=== PATIENT | female | born 1930 | race Caucasian/White ===

== ENCOUNTER 2018-04-01 10:27 | Emergency (ER) | payer MEDICARE, BC ==
[~2018-04-01] VITALS: Ht 578.2 cm; Wt 63.0 kg
[~2018-04-01 10:27] MED LIST: ANAS1TAB PO; CARV6.253 PO; CRAN500T2 PO; ENOX40DI11 SQ; LEVO50TA67 PO; MONT10TA24 PO; NITR100C PO; OMEP-84 PO; TRAM50TA2 PO; VENL75TA4 PO; ZOC40T PO
[2018-04-01] MEDS ORDERED: ondansetron 4mg rapidly disintigrating tab PO ONE (11:35)
[2018-04-01] MEDS ORDERED: HYDROcodone/acetaminophen 5mg/325mg tablet PO ONE (11:35)
[2018-04-01 12:39] VITALS: BP 158/82
== END 2018-04-01 12:46 | disposition home or self-care (01) ==
LOC: ER 10:28
DX: S00.03XA Contusion of scalp, initial encounter (principal); S00.33XA Contusion of nose, initial encounter; S40.012A Contusion of left shoulder, initial encounter; I11.0 Hypertensive heart disease with heart failure; I50.9 Heart failure, unspecified; K21.9 Gastro-esophageal reflux disease without esophagitis; G89.29 Other chronic pain; M19.90 Unspecified osteoarthritis, unspecified site; Z98.890 Other specified postprocedural states; Z88.1 Allergy status to other antibiotic agents; Z88.8 Allergy status to other drugs, medicaments and biological substances; Z79.899 Other long term (current) drug therapy; Z60.2 Problems related to living alone; W18.39XA Other fall on same level, initial encounter; Y93.89 Activity, other specified; Y92.000 Kitchen of unspecified non-institutional (private) residence as the place of occurrence of the external cause; Y99.8 Other external cause status
CPT/HCPCS: 70450; 72170; 73030; 93005; 99284

== ENCOUNTER 2018-11-06 08:36 | Emergency (ER) | payer MEDICARE, BC ==
[~2018-11-06] VITALS: Ht 167.6 cm; Wt 62.7 kg
[2018-11-06] MEDS ORDERED: ondansetron 4mg rapidly disintigrating tab PO ONE (09:20)
[2018-11-06] MEDS ORDERED: normal saline 1000ML IV soln IVB ONE (09:20)
[2018-11-06] MEDS ORDERED: acetaminophen 325mg tablet PO ONE (09:20)
[2018-11-06 09:39] LABS: BASOPHILS # (AUTO) 0.1 X10'3 (0-0.2); BASOPHILS % (AUTO) 0.9 % (0-1); EOSINOPHILS # (AUTO) 0.1 X10'3 (0-0.9); EOSINOPHILS % (AUTO) 1.3 % (0-6); HEMATOCRIT 29.2 % (35.0-45.0); HEMOGLOBIN 9.6 g/dl (12.0-16.0); LYMPHOCYTES # (AUTO) 0.7 X10'3 (1.1-4.8); MEAN CORPUSCULAR HEMOGLOBIN 26.7 PG (27.0-31.0); MEAN CORPUSCULAR HGB CONC 32.9 g/dL (33.0-36.5); MEAN CORPUSCULAR VOLUME 81.2 FL (78-98); MONOCYTES # (AUTO) 0.5 X10'3 (0-0.9); MONOCYTES % (AUTO) 8.1 % (2-12); NEUTROPHILS # (AUTO) 4.6 X10'3 (1.8-7.7); NEUTROPHILS % (AUTO) 77.7 % (42-75); PLATELET COUNT 241 X10'3 (140-440); RED BLOOD COUNT 3.59 X10'6 (4.20-5.60); RED CELL DISTRIBUTION WIDTH 15.4 % (11.5-14.5)
[2018-11-06 09:53] LABS: ALANINE AMINOTRANSFERASE 15 U/L (12-78); ALBUMIN 3.3 G/DL (3.4-5.0); ALBUMIN/GLOBULIN RATIO 0.9 (1.1-1.5); ALKALINE PHOSPHATASE 116 IU/L (46-116); ANION GAP 9 (8-16); ASPARTATE AMINO TRANSFERASE 16 U/L (10-37); BILIRUBIN,TOTAL 0.3 MG/DL (0.1-1.0); BLOOD UREA NITROGEN 10 MG/DL (7-18); BUN/CREATININE RATIO 14.5 (6.6-38.0); CALCIUM 8.5 MG/DL (8.5-10.1); CHLORIDE 105 MMOL/L (99-107); CREATININE 0.69 MG/DL (0.40-0.90); GLUCOSE 101 MG/DL (70-104); POTASSIUM 3.6 MMOL/L (3.5-5.1); SODIUM 141 MMOL/L (135-145); TOTAL CARBON DIOXIDE 26.7 MMOL/L (24-32); TOTAL PROTEIN 6.9 G/DL (6.4-8.2); eGFR 81 ML/MIN
[2018-11-06 10:23] LABS: CLARITY,URINE CLEAR (Clear); COLOR,URINE YELLOW (Yellow); GLUCOSE, URINE NEGATIVE (Neg); KETONES,URINE 15 mg/dl (Neg); LEUKOCYTE ESTERASE ,URINE TRACE (Neg); NITRITES, URINE NEGATIVE (Neg); OCCULT BLOOD,URINE TRACE-INTACT (Neg); PROTEIN,URINE NEGATIVE (Neg); UROBILINOGEN,URINE 0.2 E.U/dL (0.2-1.0)
[2018-11-06 10:29] LABS: UA COLLECTION TYPE CLN CATCH MIDSTREAM
[2018-11-06 10:30] LABS: BACTERIA,URINE NONE SEEN /HPF (Neg); MUCUS STRANDS NONE SEEN /LPF (Neg); RBC,URINE 0-2 /HPF (0-2); SQUAMOUS EPITHELIAL CELL,UR MODERATE /LPF (FEW)
[2018-11-06 10:31] LABS: RENAL CELLS, URINE FEW /HPF
[2018-11-06] MEDS ORDERED: NITR100C PO (10:56)
[2018-11-06] MEDS ORDERED: ONDA4TAB6 PO (10:59)
[2018-11-06 11:16] VITALS: BP 163/73
== END 2018-11-06 11:50 | disposition home or self-care (01) ==
LOC: ER 08:36
DX: N39.0 Urinary tract infection, site not specified (principal); R19.7 Diarrhea, unspecified; I11.0 Hypertensive heart disease with heart failure; I50.9 Heart failure, unspecified; K21.9 Gastro-esophageal reflux disease without esophagitis; M19.90 Unspecified osteoarthritis, unspecified site; G89.29 Other chronic pain; Z98.890 Other specified postprocedural states; Z88.1 Allergy status to other antibiotic agents; Z88.8 Allergy status to other drugs, medicaments and biological substances; Z79.899 Other long term (current) drug therapy
CPT/HCPCS: 36415; 80053; 81001; 85025; 87088; 99284; J7030; 96360

== ENCOUNTER 2019-10-15 11:29 | Emergency (ER) | payer MEDICARE, BC ==
[~2019-10-15] VITALS: Ht 167.6 cm; Wt 60.0 kg
[~2019-10-15 11:29] MED LIST changes: -MONT10TA24 PO; +MONT10TA26 PO; +ONDA4TAB6 PO
[2019-10-15] MEDS ORDERED: sucralfate 1gm/10ml UD suspension PO STA (12:23)
[2019-10-15] MEDS ORDERED: mag hydrox/Alum hydrox/simeth 30ml oral suspension PO ONE (12:25)
[2019-10-15] MEDS ORDERED: LIDOcaine Viscous 15ml cup MM ONE (12:25)
[2019-10-15] MEDS ORDERED: PANT40SU2 PO (12:29)
--- NOTE | 2019-10-15 13:10 | NUR ---
Pt having difficulty swallowing medications or water. Pt initially swallows but then coughs and all fluids expelled into emesis bag. Dr Gonzalez notified and Pt brought to Main ED from [facility].
[2019-10-15 14:00] VITALS: BP 165/82
[2019-10-15] MEDS ORDERED: LIDOcaine Viscous 15ml cup ONE (14:23)
[2019-10-15] MEDS ORDERED: MIDAZolam 5mg/5ml vial ONE (14:23)
[2019-10-15] MEDS ORDERED: fentaNYL/PF 50MCG/1 ML 2ML syringe ONE ×2 (14:23→14:24)
[2019-10-15 16:10] VITALS: BP 140/80
[2019-10-15 16:20] VITALS: BP 147/65
[2019-10-15 16:30] VITALS: BP 163/68
--- NOTE | 2019-10-15 16:33 | NUR ---
STILL IN GI LAB
[2019-10-15 16:40] VITALS: BP 162/67
[2019-10-15 17:39] VITALS: BP 153/63
== END 2019-10-15 17:55 | disposition home or self-care (01) ==
LOC: ER 11:29
DX: K22.2 Esophageal obstruction (principal); I50.9 Heart failure, unspecified; I11.9 Hypertensive heart disease without heart failure; K21.9 Gastro-esophageal reflux disease without esophagitis; E03.9 Hypothyroidism, unspecified; M19.90 Unspecified osteoarthritis, unspecified site; G89.29 Other chronic pain; Z98.890 Other specified postprocedural states; Z60.2 Problems related to living alone; Z88.1 Allergy status to other antibiotic agents; Z88.8 Allergy status to other drugs, medicaments and biological substances; Z79.899 Other long term (current) drug therapy
CPT/HCPCS: 43247; 43248; 71045; 99152; 99153; 99285; J2250; J3010; J7040; A4620

== ENCOUNTER 2020-03-02 18:50 | Emergency (ER) | payer MEDICARE, BC ==
[~2020-03-02] VITALS: Ht 167.6 cm; Wt 60.6 kg
[~2020-03-02 18:50] MED LIST changes: +PANT40SU2 PO
[2020-03-02 19:05] VITALS: BP 158/58
[2020-03-02 19:34] LABS: CLARITY,URINE CLOUDY (Clear); COLOR,URINE YELLOW (Yellow); GLUCOSE, URINE NEGATIVE (Neg); KETONES,URINE NEGATIVE (Neg); LEUKOCYTE ESTERASE ,URINE MODERATE (Neg); NITRITES, URINE POSITIVE (Neg); OCCULT BLOOD,URINE TRACE-INTACT (Neg); PH,URINE >=9.0 (4.8-8.0); PROTEIN,URINE 100 mg/dl (Neg); UROBILINOGEN,URINE 0.2 E.U/dL (0.2-1.0)
[2020-03-02 19:45] LABS: UA COLLECTION TYPE CLN CATCH MIDSTREAM
[2020-03-02 19:46] LABS: BACTERIA,URINE 3+ /HPF (Neg); RBC,URINE 0-2 /HPF (0-2); SQUAMOUS EPITHELIAL CELL,UR FEW /LPF (FEW); WBC,URINE 0-4 /HPF (0-4)
[2020-03-02] MEDS ORDERED: SULF1TAB49 PO (20:00)
[2020-03-02] MEDS ORDERED: sulfamethoxazole/trimethoprim DS (800/160mg) tablet PO ONE (20:00)
[2020-03-02] MEDS ORDERED: PHEN-716 PO (20:00)
[2020-03-02] MEDS ORDERED: phenazopyridine 100mg tablet PO ONE (20:00)
== END 2020-03-02 20:15 | disposition home or self-care (01) ==
LOC: ER 18:51
DX: N39.0 Urinary tract infection, site not specified (principal); R30.0 Dysuria; R30.9 Painful micturition, unspecified; R10.9 Unspecified abdominal pain; I11.0 Hypertensive heart disease with heart failure; I50.9 Heart failure, unspecified; K21.9 Gastro-esophageal reflux disease without esophagitis; M19.90 Unspecified osteoarthritis, unspecified site; G89.29 Other chronic pain; Z98.890 Other specified postprocedural states; Z60.2 Problems related to living alone; Z88.1 Allergy status to other antibiotic agents; Z88.8 Allergy status to other drugs, medicaments and biological substances; Z79.2 Long term (current) use of antibiotics; Z79.899 Other long term (current) drug therapy
CPT/HCPCS: 81001; 87077; 87088; 87186; 99283

== ENCOUNTER 2020-03-11 12:09 | Emergency (ER) | payer MEDICARE, BC ==
[~2020-03-11] VITALS: Ht 167.6 cm; Wt 59.1 kg
[~2020-03-11 12:09] MED LIST changes: +PHEN-716 PO
[2020-03-11 12:19] VITALS: BP 113/52
--- NOTE | 2020-03-11 14:42 | NUR ---
CALLED INTO ROOM BY PT. PT IS UPSET THAT IT HAS TAKEN SO LONG FOR ANYONE TO SEE HER. DR ALVES NOTIFIED HE STATES HE WILL GO SEE HER. IN ROOM 3894
[2020-03-11] MEDS ORDERED: LIDOcaine 5% patch TP ONE ×2 (14:45→14:50)
[2020-03-11] MEDS ORDERED: acetaminophen w/codeine (30MG) #3 tablet PO ONE (14:45)
[2020-03-11] MEDS ORDERED: LIDOcaine 5% patch TP SCH (14:45)
--- NOTE | 2020-03-11 16:00 | NUR ---
Pt repeatitively requesting to leave the ER. Stating that she has been waiting too long and would like to leave. Pt explained that DANIELD was going to speak with her shortly. Pt then found walking out of dept. When asked if she was trying to leave, pt stated that she had signed paperwork and was ready to leave. Attempted to explain that the paperwork she signed was registration paperwork, she refused to stay and was assisted out of dept to avoid pt falling as she is walker bound.
== END 2020-03-11 16:05 | disposition left against medical advice (07) ==
LOC: ER 12:10
DX: S39.012D Strain of muscle, fascia and tendon of lower back, subsequent encounter (principal); M54.5 Low back pain; I50.9 Heart failure, unspecified; I11.0 Hypertensive heart disease with heart failure; K21.9 Gastro-esophageal reflux disease without esophagitis; E03.9 Hypothyroidism, unspecified; M19.90 Unspecified osteoarthritis, unspecified site; G89.29 Other chronic pain; Z60.2 Problems related to living alone; Z88.8 Allergy status to other drugs, medicaments and biological substances; Z79.899 Other long term (current) drug therapy; X58.XXXD Exposure to other specified factors, subsequent encounter
CPT/HCPCS: 99283

== ENCOUNTER 2020-07-18 09:46 | Emergency (ER) | payer MEDICARE, BC ==
[~2020-07-18] VITALS: Ht 160 cm; Wt 60.0 kg
[2020-07-18 11:02] LABS: BASOPHILS % (AUTO) 0.5 % (0-1); EOSINOPHILS % (AUTO) 0.1 % (0-6); HEMATOCRIT 37.6 % (35.0-45.0); HEMOGLOBIN 12.1 g/dl (12.0-16.0); LYMPHOCYTES # (AUTO) 0.5 X10'3 (1.1-4.8); LYMPHOCYTES % (AUTO) 16.9 % (21-51); MEAN CORPUSCULAR HEMOGLOBIN 28.7 PG (27.0-31.0); MEAN CORPUSCULAR HGB CONC 32.3 g/dL (33.0-36.5); MEAN CORPUSCULAR VOLUME 88.8 FL (78-98); MEAN PLATELET VOLUME 8.4 FL (7.4-10.4); MONOCYTES # (AUTO) 0.4 X10'3 (0-0.9); MONOCYTES % (AUTO) 12.6 % (2-12); NEUTROPHILS # (AUTO) 2.3 X10'3 (1.8-7.7); NEUTROPHILS % (AUTO) 69.9 % (42-75); PLATELET COUNT 90 X10'3 (140-440); RED BLOOD COUNT 4.23 X10'6 (4.20-5.60); RED CELL DISTRIBUTION WIDTH 13.8 % (11.5-14.5); WHITE BLOOD COUNT 3.3 X10'3 (4.5-11.0)
[2020-07-18 11:18] LABS: ALANINE AMINOTRANSFERASE 50 U/L (12-78); ALBUMIN 3.1 G/DL (3.4-5.0); ALBUMIN/GLOBULIN RATIO 0.8 (1.1-1.5); ALKALINE PHOSPHATASE 91 IU/L (46-116); ANION GAP 10 (8-16); ASPARTATE AMINO TRANSFERASE 55 U/L (10-37); BILIRUBIN,TOTAL 0.2 MG/DL (0.1-1.0); BLOOD UREA NITROGEN 15 MG/DL (7-18); CALCIUM 8.1 MG/DL (8.5-10.1); CHLORIDE 102 MMOL/L (99-107); CREATININE 0.75 MG/DL (0.40-0.90); GLUCOSE 91 MG/DL (70-104); POTASSIUM 3.1 MMOL/L (3.5-5.1); SODIUM 137 MMOL/L (135-145); TOTAL CARBON DIOXIDE 24.8 MMOL/L (24-32); TOTAL PROTEIN 6.9 G/DL (6.4-8.2); eGFR 73 ML/MIN
[2020-07-18] MEDS ORDERED: HYDROcodone/acetaminophen 10/325mg tab PO ONE ×2 (12:00→18:25)
[2020-07-18 12:54] LABS: CLARITY,URINE CLOUDY (Clear); COLOR,URINE YELLOW (Yellow); GLUCOSE, URINE NEGATIVE (Neg); KETONES,URINE 15 mg/dl (Neg); LEUKOCYTE ESTERASE ,URINE NEGATIVE (Neg); NITRITES, URINE NEGATIVE (Neg); OCCULT BLOOD,URINE NEGATIVE (Neg); PH,URINE 6.5 (4.8-8.0); PROTEIN,URINE 30 mg/dl (Neg); UROBILINOGEN,URINE 0.2 E.U/dL (0.2-1.0)
[2020-07-18 12:57] LABS: UA COLLECTION TYPE OTHER
[2020-07-18 13:01] LABS: BACTERIA,URINE 1+ /HPF (Neg); MUCUS STRANDS FEW /LPF (Neg); RBC,URINE 0-2 /HPF (0-2); SQUAMOUS EPITHELIAL CELL,UR MODERATE /LPF (FEW); WBC,URINE 0-4 /HPF (0-4)
--- NOTE | 2020-07-18 14:42 | NUR ---
Pt up to bedside comode with minimal assistance.
[2020-07-18] MEDS ORDERED: HYDR-3965 PO (15:49)
[2020-07-18 18:43] VITALS: BP 146/113
== END 2020-07-18 18:45 | disposition home or self-care (01) ==
LOC: ER 09:47
DX: U07.1 COVID-19 (principal); R06.02 Shortness of breath; R51.9 Headache, unspecified; R05 Cough; R11.0 Nausea; I11.0 Hypertensive heart disease with heart failure; I50.9 Heart failure, unspecified; K21.9 Gastro-esophageal reflux disease without esophagitis; E03.9 Hypothyroidism, unspecified; M19.90 Unspecified osteoarthritis, unspecified site; G89.29 Other chronic pain; Z87.440 Personal history of urinary (tract) infections; Z98.890 Other specified postprocedural states; Z60.2 Problems related to living alone; Z88.1 Allergy status to other antibiotic agents; Z88.8 Allergy status to other drugs, medicaments and biological substances; Z91.013 Allergy to seafood; Z79.899 Other long term (current) drug therapy
CPT/HCPCS: 36415; 71045; 80053; 81001; 84484; 85025; 87635; 93005; 99285; C9803

== ENCOUNTER 2020-07-24 18:42 | Inpatient (IN) | payer MEDICARE, BC ==
[~2020-07-24] VITALS: Ht 167.6 cm; Wt 59.4 kg
[~2020-07-24 18:42] MED LIST changes: +HYDR-3965 PO
[2020-07-24 19:34] LABS: BASOPHILS % (AUTO) 0.2 % (0-1); EOSINOPHILS % (AUTO) 0.5 % (0-6); HEMATOCRIT 35.2 % (35.0-45.0); HEMOGLOBIN 11.8 g/dl (12.0-16.0); LYMPHOCYTES # (AUTO) 0.4 X10'3 (1.1-4.8); LYMPHOCYTES % (AUTO) 7.4 % (21-51); MEAN CORPUSCULAR HEMOGLOBIN 29.2 PG (27.0-31.0); MEAN CORPUSCULAR HGB CONC 33.5 g/dL (33.0-36.5); MEAN CORPUSCULAR VOLUME 86.9 FL (78-98); MEAN PLATELET VOLUME 7.9 FL (7.4-10.4); MONOCYTES # (AUTO) 0.6 X10'3 (0-0.9); MONOCYTES % (AUTO) 11.1 % (2-12); NEUTROPHILS # (AUTO) 4.7 X10'3 (1.8-7.7); NEUTROPHILS % (AUTO) 80.8 % (42-75); PLATELET COUNT 189 X10'3 (140-440); RED BLOOD COUNT 4.04 X10'6 (4.20-5.60); RED CELL DISTRIBUTION WIDTH 13.9 % (11.5-14.5); WHITE BLOOD COUNT 5.8 X10'3 (4.5-11.0)
[2020-07-24 20:16] LABS: D-DIMER 1.07 MG/L FEU (0-0.50)
[2020-07-24 20:26] LABS: ALANINE AMINOTRANSFERASE 66 U/L (12-78); ALBUMIN 2.8 G/DL (3.4-5.0); ALBUMIN/GLOBULIN RATIO 0.7 (1.1-1.5); ALKALINE PHOSPHATASE 140 IU/L (46-116); ANION GAP 9 (8-16); ASPARTATE AMINO TRANSFERASE 50 U/L (10-37); BILIRUBIN,TOTAL 0.3 MG/DL (0.1-1.0); BLOOD UREA NITROGEN 18 MG/DL (7-18); BUN/CREATININE RATIO 20.5 (6.6-38.0); CALCIUM 7.9 MG/DL (8.5-10.1); CHLORIDE 100 MMOL/L (99-107); CREATININE 0.88 MG/DL (0.40-0.90); GLUCOSE 117 MG/DL (70-104); POTASSIUM 3.4 MMOL/L (3.5-5.1); SODIUM 134 MMOL/L (135-145); TOTAL CARBON DIOXIDE 25.4 MMOL/L (24-32); TOTAL PROTEIN 6.7 G/DL (6.4-8.2); eGFR 61 ML/MIN
[2020-07-24 20:30] LABS: C-REACTIVE PROTEIN 9.34 MG/DL (0.0-0.5); FERRITIN 214 NG/ML (8-252); LACTATE DEHYDROGENASE 225 U/L (81-234)
[2020-07-24] MEDS ORDERED: iohexol 350MG/ML 100ml bottle IV ONE (20:56)
--- NOTE | 2020-07-24 21:14 | NUR ---
Pt in CT
[2020-07-24] MEDS ORDERED: acetaminophen 325mg tablet PO ONE (21:30)
[2020-07-24] MEDS ORDERED: OXYM30SP26 BOTHNARES (22:05)
[2020-07-24] MEDS ORDERED: oxymetazoline 15 ML nasal spray NS ONE (22:05)
[2020-07-24] MEDS ORDERED: ondansetron 4mg rapidly disintigrating tab PO ONE (22:05)
[2020-07-24] MEDS: HYDROcodone/acetaminophen 5mg/325mg tablet PO ONE ×2 (22:05→22:38)
--- NOTE | 2020-07-24 22:55 | NUR ---
PT SHORT OF BREATH RECHECKED O2 SATS AT 87-88 % RA PLACED 1.5 L O2 PER NC O2 SATS INCREASE TO 91 % NOTIFIED PRIMARY RN . ABOUT DESATURATION AND PT INCREASED WORK OF BREATHING WITH ACTIVITY .
[2020-07-24] MEDS ORDERED: dexamethasone 4mg tablet PO ONE (23:10)
--- NOTE | 2020-07-24 23:10 | NUR ---
Dr. Bolanos advised of Pt desaturating when oxygen removed. Dr. Bolanos advised pt will be admitted.
[2020-07-24] MEDS ORDERED: HYDROcodone/acetaminophen 5mg/325mg tablet PO ONE (23:15)
[2020-07-24] MEDS ORDERED: potassium Cl 20 mEq SR tablet PO PRN (23:50)
[2020-07-24] MEDS ORDERED: mag hydrox/Alum hydrox/simeth 30ml oral suspension PO PRN (23:50)
[2020-07-24] MEDS ORDERED: acetaminophen 325mg tablet PO PRN (23:50)
[2020-07-24] MEDS ORDERED: magnesium hydroxide 30ml (MOM) UD suspension PO PRN (23:50)
[2020-07-24] MEDS ORDERED: potassium CL 10mEq/100ml bag 100 ML IV PRN ×2 (23:50)
[2020-07-24] MEDS: normal saline 1000ml 1,000 ML IV SCH (23:50)
[2020-07-24] MEDS ORDERED: ondansetron/PF 4mg/2ml inj IV PRN (23:50)
--- NOTE | 2020-07-25 00:05 | NUR ---
Pt on 2 L NC maintaining SPO2 of 95%
[2020-07-25] MEDS ORDERED: LEVO50TA8 PO (00:49)
[2020-07-25] MEDS ORDERED: OXYB-58 PO (00:53)
[2020-07-25] MEDS ORDERED: CETI10TA14 PO (00:53)
[2020-07-25] MEDS ORDERED: LOSA25TA41 PO (00:54)
[2020-07-25] MEDS ORDERED: OMEP40CA13 PO (00:55)
[2020-07-25] MEDS ORDERED: VENL50TA4 PO (00:57)
[2020-07-25] MEDS ORDERED: EXEM25TA5 PO (01:43)
[2020-07-25] MEDS ORDERED: METH500T6 PO (01:43)
--- NOTE | 2020-07-25 01:45 | NUR ---
Pt bed linens changed and pt put in gown with clean warm blanket.
--- NOTE | 2020-07-25 03:47 | NUR ---
Pt assisted to bedside comode. NS at 20ml/hr running
--- NOTE | 2020-07-25 06:09 | NUR ---
Pt states she has been taking antibiotics for a UTI that she was diagnosed with 1 week ago. Pt has Cipro 500mg tablets in purse with 8 left. Paged Hospitalist to confirm pt can continue taking medication.
--- NOTE | 2020-07-25 06:11 | NUR ---
Dr. Banegas states he approves an order for Cipro 500mg BID for pt
[2020-07-25] MEDS ORDERED: CIPR500T5 PO (06:28)
[2020-07-25 07:33] VITALS: BP 130/73
[2020-07-25] MEDS: cyclobenzaprine 10mg tablet PO SCH ×3 (07:46→19:45)
[2020-07-25] MEDS: normal saline 1000ml 1,000 ML IV SCH (07:46)
[2020-07-25] MEDS: pantoprazole 40mg Tablet.DR PO SCH (07:47)
[2020-07-25] MEDS: carvedilol 6.25mg tablet PO SCH ×2 (07:47→19:44)
[2020-07-25] MEDS: levoTHYROXINE 25mcg tablet PO SCH (07:47)
[2020-07-25] MEDS: venlafaxine 25mg tablet PO SCH (07:47)
[2020-07-25] MEDS: losartan 25mg tablet PO SCH (07:48)
[2020-07-25] MEDS: enoxaparin 40mg/0.4ml syringe SUBCUT SCH (07:48)
[2020-07-25] MEDS: K and/or MAG REPLACEMENT MC SCH ×3 (08:00→19:38)
[2020-07-25] MEDS ORDERED: CRANBERRY EXTRACT 500 MG PO SCH (08:00)
[2020-07-25] MEDS: dexamethasone inj 6 MG in normal saline 100ml IV soln 100 ML IV SCH (08:59)
[2020-07-25 09:36] LABS: BASOPHILS % (AUTO) 0.1 % (0-1); EOSINOPHILS % (AUTO) 0 % (0-6); HEMATOCRIT 34.2 % (35.0-45.0); HEMOGLOBIN 11.2 g/dl (12.0-16.0); LYMPHOCYTES # (AUTO) 0.3 X10'3 (1.1-4.8); MEAN CORPUSCULAR HEMOGLOBIN 28.3 PG (27.0-31.0); MEAN CORPUSCULAR HGB CONC 32.6 g/dL (33.0-36.5); MEAN CORPUSCULAR VOLUME 86.8 FL (78-98); MEAN PLATELET VOLUME 8.1 FL (7.4-10.4); MONOCYTES # (AUTO) 0.3 X10'3 (0-0.9); MONOCYTES % (AUTO) 5.6 % (2-12); NEUTROPHILS # (AUTO) 4.3 X10'3 (1.8-7.7); NEUTROPHILS % (AUTO) 88.3 % (42-75); PLATELET COUNT 187 X10'3 (140-440); RED BLOOD COUNT 3.94 X10'6 (4.20-5.60); RED CELL DISTRIBUTION WIDTH 13.8 % (11.5-14.5); WHITE BLOOD COUNT 4.8 X10'3 (4.5-11.0)
[2020-07-25 09:50] LABS: ALANINE AMINOTRANSFERASE 52 U/L (12-78); ALBUMIN 2.6 G/DL (3.4-5.0); ALBUMIN/GLOBULIN RATIO 0.7 (1.1-1.5); ALKALINE PHOSPHATASE 129 IU/L (46-116); ANION GAP 10 (8-16); ASPARTATE AMINO TRANSFERASE 39 U/L (10-37); BILIRUBIN,TOTAL 0.3 MG/DL (0.1-1.0); BLOOD UREA NITROGEN 15 MG/DL (7-18); BUN/CREATININE RATIO 18.3 (6.6-38.0); CALCIUM 7.8 MG/DL (8.5-10.1); CHLORIDE 100 MMOL/L (99-107); CREATININE 0.82 MG/DL (0.40-0.90); GLUCOSE 154 MG/DL (70-104); POTASSIUM 3.4 MMOL/L (3.5-5.1); SODIUM 135 MMOL/L (135-145); TOTAL CARBON DIOXIDE 25.3 MMOL/L (24-32); TOTAL PROTEIN 6.5 G/DL (6.4-8.2); eGFR 66 ML/MIN
--- NOTE | 2020-07-25 10:31 | NUR ---
I spoke to pharmacist Mariel about patient's daughter was concern about sending the granddaughter to [facility] to picker box operator home meds (i.e., Cranberry pill and Exemestane) as per request. Patient lives at [facility], patient and the daughter both told me that there is outbreak of Covid19 at the facility. Beam Machine Operator Deepa notified about this as patient may be difficult to get back to the facility.
--- NOTE | 2020-07-25 10:40 | NUR ---
Paged Dr. Estrada PAGER ID: [phone] MESSAGE: Surgical Flex RN ext [phone]. RE: Nina Rascon. K today is 3.4, can we get replacement protocol order? Also want to follow up patient request for pain medicine.
[2020-07-25] MEDS ORDERED: potassium Cl 20 mEq SR tablet PO PRN ×2 (10:55)
[2020-07-25] MEDS ORDERED: potassium CL 10mEq/100ml bag 100 ML IV PRN (10:55)
[2020-07-25] MEDS ORDERED: traMADol 50MG tablet PO PRN (10:55)
[2020-07-25] MEDS: potassium Cl 20 mEq SR tablet PO PRN ×2 (11:13→19:45)
--- NOTE | 2020-07-25 11:26 | NUR ---
Patient was offered Tramadol for pain, patient refused. She said Tramadol don't worked for her. She said Marion worked for her. Will let the doctor know
--- NOTE | 2020-07-25 11:33 | NUR ---
Paged Dr. Estrada PAGER ID: [phone] MESSAGE: Darrin Mccord RN ext [phone]. RE: Nina Rascon. Patient refused Tramadol, she said don't work for her. She's requesting [place].
--- NOTE | 2020-07-25 12:05 | NUR ---
Age screen: Pt admit COVID positive about a week ago and has lost appetite and sense of smell per H&P. Patient's diet has been adjusted to mechanical soft d/t no teeth or dentures per diet order. Pending documentation of PO intake at this time. D/w dietary to send chop all food. Will continue to follow closely and monitor need for nutrition intervention pending trends in PO intake. Addendum: 07/25/20 at [address] Amended: Links added.
--- NOTE | 2020-07-25 12:15 | NUR ---
Late entry When I spoke to Dr. Estrada regarding this patient about an hour ago, I mentioned to her that ER nurses note stated that Dr. Banegas approved Cipro PO BID that patient was taking for UTI prior to this admission. I asked her if she is okay resuming it because the order was not put in the computer as an order. Dr. Estrada said that she would have to review the chart to decide.
[2020-07-25] MEDS: HYDROcodone/acetaminophen 5mg/325mg tablet PO PRN ×2 (12:21→20:16)
[2020-07-25 12:25] VITALS: BP 124/53
--- NOTE | 2020-07-25 16:00 | NUR ---
made several call attempts by phone to patient. each time the line was busy. not able to update pt medical records with admissions questions, notified primary RN Yina who will follow up with patient.
--- NOTE | 2020-07-25 16:02 | NUR ---
O2 Sat at rest on room air:_94__% If below 89%: Recovery O2 Sat at rest on __2_LPM:___%:_95__% via_nasal cannula__(mask/nasal cannula, etc..) No further documentation is necessary. If O2 Sat did not drop below 89% on room air,ambulate patient on room air. O2 Sat while ambulating on room air:_88__% Recovery O2 Sat while ambulating on __2_LPM:_94__% No further documentation is necessary. If patient does not drop below 89% while ambulating, he/she does not qualify for home O2.
--- NOTE | 2020-07-25 16:06 | NUR ---
I spoke to Alysia, Welding Specialist about patient met the criteria for home oxygen. I also let her know that patient is anxious about going back to [facility] as she feels like the staff wont be able to care for her and that she is not independent yet with ADL as she was prior to getting sick. I asked Deepa if she can tell Dr. Estrada about this, she said she will
--- NOTE | 2020-07-25 18:42 | NUR ---
Problems reprioritized. Patient report given, questions answered & plan of care reviewed with Audrey RIDLEY.
--- NOTE | 2020-07-25 19:00 | NUR ---
Patient in room [facility]. I have received report from Nancy RIDLEY and had the opportunity to ask questions and assume patient care.
[2020-07-25 20:00] VITALS: BP 126/77
[2020-07-26] VITALS: BP_SYST 120; BP_SYST 134; BP_DIAS 45; BP_DIAS 64
[2020-07-26] MEDS: potassium Cl 20 mEq SR tablet PO PRN (02:38)
[2020-07-26 06:06] LABS: BASOPHILS % (AUTO) 0.2 % (0-1); EOSINOPHILS % (AUTO) 0 % (0-6); HEMATOCRIT 32.7 % (35.0-45.0); LYMPHOCYTES # (AUTO) 0.5 X10'3 (1.1-4.8); LYMPHOCYTES % (AUTO) 4.8 % (21-51); MEAN CORPUSCULAR HEMOGLOBIN 29.3 PG (27.0-31.0); MEAN CORPUSCULAR HGB CONC 33.7 g/dL (33.0-36.5); MEAN CORPUSCULAR VOLUME 86.9 FL (78-98); MEAN PLATELET VOLUME 8.1 FL (7.4-10.4); MONOCYTES # (AUTO) 0.9 X10'3 (0-0.9); MONOCYTES % (AUTO) 9.6 % (2-12); NEUTROPHILS # (AUTO) 8.3 X10'3 (1.8-7.7); NEUTROPHILS % (AUTO) 85.4 % (42-75); PLATELET COUNT 225 X10'3 (140-440); RED BLOOD COUNT 3.76 X10'6 (4.20-5.60); RED CELL DISTRIBUTION WIDTH 13.5 % (11.5-14.5); WHITE BLOOD COUNT 9.7 X10'3 (4.5-11.0)
[2020-07-26 06:25] LABS: ALANINE AMINOTRANSFERASE 44 U/L (12-78); ALBUMIN 2.4 G/DL (3.4-5.0); ALBUMIN/GLOBULIN RATIO 0.6 (1.1-1.5); ALKALINE PHOSPHATASE 115 IU/L (46-116); ANION GAP 11 (8-16); ASPARTATE AMINO TRANSFERASE 26 U/L (10-37); BILIRUBIN,TOTAL 0.2 MG/DL (0.1-1.0); BLOOD UREA NITROGEN 19 MG/DL (7-18); BUN/CREATININE RATIO 26.8 (6.6-38.0); CALCIUM 8.3 MG/DL (8.5-10.1); CHLORIDE 107 MMOL/L (99-107); CREATININE 0.71 MG/DL (0.40-0.90); GLUCOSE 160 MG/DL (70-104); POTASSIUM 3.8 MMOL/L (3.5-5.1); SODIUM 142 MMOL/L (135-145); TOTAL CARBON DIOXIDE 24.1 MMOL/L (24-32); TOTAL PROTEIN 6.3 G/DL (6.4-8.2); eGFR 78 ML/MIN
--- NOTE | 2020-07-26 06:27 | NUR ---
Problems reprioritized. Patient report given, questions answered & plan of care reviewed with Nancy RIDLEY.
--- NOTE | 2020-07-26 06:31 | NUR ---
Patient in room [facility]. I have received report from Audrey RIDLEY and had the opportunity to ask questions and assume patient care.
[2020-07-26] MEDS: dexamethasone inj 6 MG in normal saline 100ml IV soln 100 ML IV SCH (07:18)
[2020-07-26] MEDS: venlafaxine 25mg tablet PO SCH (07:19)
[2020-07-26] MEDS: pantoprazole 40mg Tablet.DR PO SCH (07:19)
[2020-07-26] MEDS: HYDROcodone/acetaminophen 5mg/325mg tablet PO PRN ×2 (07:19→19:32)
[2020-07-26] MEDS: cyclobenzaprine 10mg tablet PO SCH ×3 (07:19→19:25)
[2020-07-26] MEDS: losartan 25mg tablet PO SCH (07:20)
[2020-07-26] MEDS: carvedilol 6.25mg tablet PO SCH ×2 (07:20→19:25)
[2020-07-26] MEDS: levoTHYROXINE 25mcg tablet PO SCH (07:20)
[2020-07-26] MEDS: enoxaparin 40mg/0.4ml syringe SUBCUT SCH (07:21)
[2020-07-26 07:34] VITALS: BP 142/79
[2020-07-26] MEDS: K and/or MAG REPLACEMENT MC SCH ×2 (08:00→19:56)
--- NOTE | 2020-07-26 08:30 | NUR ---
I called pharmacy to request the chemo drug Aromasin tablet due at 08:00am, pharmacy retail support specialist that I spoke on the phone said that it is currently not available as it has to be ordered from [facility].
--- NOTE | 2020-07-26 09:36 | NUR ---
Friend of pt, Neida, phoned stating before admission the pt was "ok'd" by the Health Dept to be removed from isolation on Saturday 07/28 and if pt needs SNF placement pt has been to [facility] in the past and liked it there. Neida was concerned pt will be too weak to go to her home immediately after d/c'g. Shira CARBONE, was notified.
[2020-07-26 10:33] VITALS: BP 102/59
[2020-07-26] MEDS ORDERED: DEC4T PO (12:44)
[2020-07-26 14:28] LABS: D-DIMER 0.89 MG/L FEU (0-0.50)
[2020-07-26 18:00] VITALS: BP 125/57
--- NOTE | 2020-07-26 18:31 | NUR ---
Problems reprioritized. Patient report given, questions answered & plan of care reviewed with Audrey RIDLEY.
--- NOTE | 2020-07-26 18:59 | NUR ---
I have received report from Nancy RIDLEY and had the opportunity to ask questions and assume patient care.
[2020-07-26] MEDS: normal saline 1000ml 1,000 ML IV SCH (19:26)
[2020-07-27] VITALS: BP 120/54
[2020-07-27] MEDS: HYDROcodone/acetaminophen 5mg/325mg tablet PO PRN ×3 (04:17→22:24)
--- NOTE | 2020-07-27 06:27 | NUR ---
Problems reprioritized. Patient report given, questions answered & plan of care reviewed with Belkis RIDLEY.
[2020-07-27 06:52] LABS: BASOPHILS % (AUTO) 0.1 % (0-1); EOSINOPHILS % (AUTO) 0 % (0-6); HEMATOCRIT 32.4 % (35.0-45.0); HEMOGLOBIN 10.7 g/dl (12.0-16.0); LYMPHOCYTES # (AUTO) 0.4 X10'3 (1.1-4.8); LYMPHOCYTES % (AUTO) 3.7 % (21-51); MEAN CORPUSCULAR HEMOGLOBIN 28.4 PG (27.0-31.0); MEAN CORPUSCULAR HGB CONC 33.1 g/dL (33.0-36.5); MEAN CORPUSCULAR VOLUME 85.8 FL (78-98); MEAN PLATELET VOLUME 7.9 FL (7.4-10.4); MONOCYTES # (AUTO) 1.1 X10'3 (0-0.9); MONOCYTES % (AUTO) 9.3 % (2-12); NEUTROPHILS # (AUTO) 10.3 X10'3 (1.8-7.7); NEUTROPHILS % (AUTO) 86.9 % (42-75); PLATELET COUNT 254 X10'3 (140-440); RED BLOOD COUNT 3.78 X10'6 (4.20-5.60); WHITE BLOOD COUNT 11.9 X10'3 (4.5-11.0)
[2020-07-27 07:23] LABS: ALANINE AMINOTRANSFERASE 37 U/L (12-78); ALBUMIN 2.4 G/DL (3.4-5.0); ALBUMIN/GLOBULIN RATIO 0.6 (1.1-1.5); ALKALINE PHOSPHATASE 108 IU/L (46-116); ANION GAP 10 (8-16); ASPARTATE AMINO TRANSFERASE 24 U/L (10-37); BILIRUBIN,TOTAL 0.3 MG/DL (0.1-1.0); BLOOD UREA NITROGEN 22 MG/DL (7-18); BUN/CREATININE RATIO 28.9 (6.6-38.0); CALCIUM 8.4 MG/DL (8.5-10.1); CHLORIDE 108 MMOL/L (99-107); CREATININE 0.76 MG/DL (0.40-0.90); GLUCOSE 119 MG/DL (70-104); POTASSIUM 3.9 MMOL/L (3.5-5.1); SODIUM 141 MMOL/L (135-145); TOTAL PROTEIN 6.1 G/DL (6.4-8.2); eGFR 72 ML/MIN
[2020-07-27 07:40] VITALS: BP 143/72
[2020-07-27] MEDS: K and/or MAG REPLACEMENT MC SCH ×2 (08:00→19:33)
[2020-07-27] MEDS: cyclobenzaprine 10mg tablet PO SCH ×3 (08:03→22:23)
[2020-07-27] MEDS: enoxaparin 40mg/0.4ml syringe SUBCUT SCH (08:03)
[2020-07-27] MEDS: pantoprazole 40mg Tablet.DR PO SCH (08:03)
[2020-07-27] MEDS: venlafaxine 25mg tablet PO SCH (08:04)
[2020-07-27] MEDS: dexamethasone inj 6 MG in normal saline 100ml IV soln 100 ML IV SCH (08:04)
[2020-07-27] MEDS: levoTHYROXINE 25mcg tablet PO SCH (08:04)
[2020-07-27] MEDS: carvedilol 6.25mg tablet PO SCH ×2 (08:04→22:22)
[2020-07-27] MEDS: losartan 25mg tablet PO SCH (08:40)
[2020-07-27] MEDS ORDERED: pneumococcal 23-VAL P-sac vacc 25 mcg/0.5ml vial IMVAC ONE (10:00)
[2020-07-27 12:00] VITALS: BP 138/64
--- NOTE | 2020-07-27 14:33 | NUR ---
Malnutrition consult: Pt reports wt loss with decreased appetite per malnutrition risk screen with RN. Pt with wt hx ranging 59-62 kg since 2017, current documented wt is 59.41 kg which is stable with wt hx. Pt previously on a mechanical soft diet receiving chopped food documented with average 25-50% PO intake. Diet has been changed to mechanical soft grind all. PO intake up to 25% PO intake of protein and 100% PO intake of milk and starch at breakfast this morning. Patient's decreased appetite likely r/t admitting dx of NELIA, which has also resulted in losing sense of smell per MD notes. Pt with no documented significant decrease in muscle strength or edema. Pt appears well developed, well nourished per ED report. Pt currently lacks a minimum of two criteria for malnutrition. Recommend trialing shakes and smoothies with meals to optimize PO intake, d/w dietary. If PO intake does not continue to improve pt may benefit from appetite stimulant with MD approval. Noted that pt currently receiving Effexor which may improve appetite as well. LBM 07/24. Pt received first dose of PRN MoM today. Will continue to follow closely and monitor need for further nutrition intervention. Recommendations: 1) Continue mechanical soft grind all food with thin liquids 2) Trial yogurt q breakfast, smoothie q lunch, and shake q dinner 3) Monitor need for ONS 4) Consider appetite stimulant with MD approval if PO intake does not continue to improve 5) Routine bowel care 6) Scaled weights per rx Addendum: 07/27/20 at [address] Amended: Links added.
--- NOTE | 2020-07-27 18:21 | NUR ---
Problems reprioritized. Patient report given, questions answered & plan of care reviewed with KHAI Baker.
--- NOTE | 2020-07-27 18:41 | NUR ---
Patient in room [facility]. I have received report from KHAI Tamayo and had the opportunity to ask questions and assume patient care.
[2020-07-27 20:00] VITALS: BP 152/79
[2020-07-28 00:17] VITALS: BP 125/63
[2020-07-28] MEDS: guaiFENesin ER 600mg tablet PO SCH ×2 (04:26→14:34)
[2020-07-28 05:53] LABS: BASOPHILS % (AUTO) 0.1 % (0-1); EOSINOPHILS % (AUTO) 0 % (0-6); HEMATOCRIT 33.2 % (35.0-45.0); HEMOGLOBIN 11.1 g/dl (12.0-16.0); LYMPHOCYTES # (AUTO) 0.6 X10'3 (1.1-4.8); LYMPHOCYTES % (AUTO) 5.1 % (21-51); MEAN CORPUSCULAR HEMOGLOBIN 28.9 PG (27.0-31.0); MEAN CORPUSCULAR HGB CONC 33.5 g/dL (33.0-36.5); MEAN CORPUSCULAR VOLUME 86.4 FL (78-98); MONOCYTES # (AUTO) 1.3 X10'3 (0-0.9); MONOCYTES % (AUTO) 11.3 % (2-12); NEUTROPHILS # (AUTO) 9.4 X10'3 (1.8-7.7); NEUTROPHILS % (AUTO) 83.5 % (42-75); PLATELET COUNT 246 X10'3 (140-440); RED BLOOD COUNT 3.84 X10'6 (4.20-5.60); RED CELL DISTRIBUTION WIDTH 14.2 % (11.5-14.5); WHITE BLOOD COUNT 11.3 X10'3 (4.5-11.0)
[2020-07-28 06:17] LABS: ALANINE AMINOTRANSFERASE 33 U/L (12-78); ALBUMIN 2.4 G/DL (3.4-5.0); ALBUMIN/GLOBULIN RATIO 0.6 (1.1-1.5); ALKALINE PHOSPHATASE 106 IU/L (46-116); ANION GAP 9 (8-16); ASPARTATE AMINO TRANSFERASE 16 U/L (10-37); BILIRUBIN,TOTAL 0.2 MG/DL (0.1-1.0); BLOOD UREA NITROGEN 23 MG/DL (7-18); BUN/CREATININE RATIO 27.7 (6.6-38.0); CALCIUM 8.7 MG/DL (8.5-10.1); CHLORIDE 107 MMOL/L (99-107); CREATININE 0.83 MG/DL (0.40-0.90); GLUCOSE 102 MG/DL (70-104); SODIUM 140 MMOL/L (135-145); TOTAL CARBON DIOXIDE 24.1 MMOL/L (24-32); TOTAL PROTEIN 6.2 G/DL (6.4-8.2); eGFR 65 ML/MIN
[2020-07-28 06:46] VITALS: BP 115/85
--- NOTE | 2020-07-28 06:50 | NUR ---
Problems reprioritized. Patient report given, questions answered & plan of care reviewed with KHAI Tamayo.
[2020-07-28] MEDS: K and/or MAG REPLACEMENT MC SCH ×2 (08:00→20:00)
[2020-07-28] MEDS: venlafaxine 25mg tablet PO SCH (08:07)
[2020-07-28] MEDS: levoTHYROXINE 25mcg tablet PO SCH (08:07)
[2020-07-28] MEDS: dexamethasone inj 6 MG in normal saline 100ml IV soln 100 ML IV SCH (08:07)
[2020-07-28] MEDS: carvedilol 6.25mg tablet PO SCH ×2 (08:08→19:49)
[2020-07-28] MEDS: losartan 25mg tablet PO SCH (08:08)
[2020-07-28] MEDS: pantoprazole 40mg Tablet.DR PO SCH (08:08)
[2020-07-28] MEDS: cyclobenzaprine 10mg tablet PO SCH ×3 (08:08→20:16)
[2020-07-28] MEDS: HYDROcodone/acetaminophen 5mg/325mg tablet PO PRN ×3 (08:09→20:34)
[2020-07-28] MEDS: enoxaparin 40mg/0.4ml syringe SUBCUT SCH (08:09)
[2020-07-28 12:00] VITALS: BP 138/72
[2020-07-28 17:50] VITALS: BP 146/69
--- NOTE | 2020-07-28 18:21 | NUR ---
Problems reprioritized. Patient report given, questions answered & plan of care reviewed with KHAI MARIE.
--- NOTE | 2020-07-28 18:21 | NUR ---
Patient in room [facility]. I have received report from KHAI Tamayo and had the opportunity to ask questions and assume patient care.
[2020-07-28 19:50] VITALS: BP 146/69
[2020-07-28] MEDS: normal saline 1000ml 1,000 ML IV SCH (20:13)
[2020-07-29 00:37] VITALS: BP 154/72
[2020-07-29] MEDS: guaiFENesin ER 600mg tablet PO SCH ×3 (02:37→21:11)
[2020-07-29] MEDS: HYDROcodone/acetaminophen 5mg/325mg tablet PO PRN ×3 (04:16→21:10)
[2020-07-29 05:53] LABS: BASOPHILS % (AUTO) 0.1 % (0-1); EOSINOPHILS % (AUTO) 0 % (0-6); HEMATOCRIT 33.9 % (35.0-45.0); HEMOGLOBIN 11.4 g/dl (12.0-16.0); LYMPHOCYTES # (AUTO) 0.6 X10'3 (1.1-4.8); LYMPHOCYTES % (AUTO) 6.4 % (21-51); MEAN CORPUSCULAR HEMOGLOBIN 29.2 PG (27.0-31.0); MEAN CORPUSCULAR HGB CONC 33.5 g/dL (33.0-36.5); MEAN CORPUSCULAR VOLUME 86.9 FL (78-98); MONOCYTES # (AUTO) 1.1 X10'3 (0-0.9); MONOCYTES % (AUTO) 12.1 % (2-12); NEUTROPHILS # (AUTO) 7.7 X10'3 (1.8-7.7); NEUTROPHILS % (AUTO) 81.4 % (42-75); PLATELET COUNT 269 X10'3 (140-440); WHITE BLOOD COUNT 9.5 X10'3 (4.5-11.0)
--- NOTE | 2020-07-29 06:20 | NUR ---
Problems reprioritized. Patient report given, questions answered & plan of care reviewed with KHAI Tamayo.
[2020-07-29 06:34] LABS: ALANINE AMINOTRANSFERASE 30 U/L (12-78); ALBUMIN 2.4 G/DL (3.4-5.0); ALBUMIN/GLOBULIN RATIO 0.6 (1.1-1.5); ALKALINE PHOSPHATASE 118 IU/L (46-116); ANION GAP 7 (8-16); ASPARTATE AMINO TRANSFERASE 14 U/L (10-37); BILIRUBIN,TOTAL 0.3 MG/DL (0.1-1.0); BLOOD UREA NITROGEN 22 MG/DL (7-18); BUN/CREATININE RATIO 27.5 (6.6-38.0); CALCIUM 8.5 MG/DL (8.5-10.1); CHLORIDE 106 MMOL/L (99-107); GLUCOSE 105 MG/DL (70-104); POTASSIUM 3.6 MMOL/L (3.5-5.1); SODIUM 141 MMOL/L (135-145); TOTAL CARBON DIOXIDE 27.8 MMOL/L (24-32); TOTAL PROTEIN 6.2 G/DL (6.4-8.2); eGFR 68 ML/MIN
[2020-07-29] MEDS: dexamethasone inj 6 MG in normal saline 100ml IV soln 100 ML IV SCH (07:45)
[2020-07-29] MEDS: levoTHYROXINE 25mcg tablet PO SCH (07:46)
[2020-07-29] MEDS: enoxaparin 40mg/0.4ml syringe SUBCUT SCH (07:46)
[2020-07-29] MEDS: K and/or MAG REPLACEMENT MC SCH ×2 (07:46→20:00)
[2020-07-29] MEDS: venlafaxine 25mg tablet PO SCH (07:46)
[2020-07-29] MEDS: carvedilol 6.25mg tablet PO SCH ×2 (07:46→21:11)
[2020-07-29] MEDS: pantoprazole 40mg Tablet.DR PO SCH (07:46)
[2020-07-29] MEDS: cyclobenzaprine 10mg tablet PO SCH ×3 (07:46→21:11)
[2020-07-29 08:00] VITALS: BP 141/72
[2020-07-29] MEDS: losartan 25mg tablet PO SCH (08:08)
[2020-07-29 11:34] VITALS: BP 140/53
--- NOTE | 2020-07-29 18:05 | NUR ---
Patient in room [facility]. I have received report from ANTONIO RIDLEY and had the opportunity to ask questions and assume patient care. Addendum: 07/29/20 at 1902 by Tia Sanchez RN Amended: Links added.
--- NOTE | 2020-07-29 18:39 | NUR ---
Problems reprioritized. Patient report given, questions answered & plan of care reviewed with KHAI Weber.
[2020-07-29 19:00] VITALS: BP 154/86
--- NOTE | 2020-07-29 21:29 | NUR ---
PT MEDICATED FOR PAIN WITH HS MEDICATIONS REFUSED HS CARE AT THIS TIME. HOWEVER ASSISTED UP TO BEDSIDE COMMODE TO VOID AND PERICARE GIVEN WITH PAD CHANGE DONE. PT TOLERATED FAIR AND COUGHING. LUNGS DIMINISHED AND SCATTERED CRACKLES CLEARS WITH COUGH.
--- NOTE | 2020-07-29 23:00 | NUR ---
up with assist to bedside commode tolerated well without s&s of distress at this time. noted has dry cough with activity.
[2020-07-30] VITALS: BP 153/77
--- NOTE | 2020-07-30 01:00 | NUR ---
UP WITH ASSISTANCE TO BEDSIDE COMMODE TO VOID TOLERATED WELL.
--- NOTE | 2020-07-30 02:40 | NUR ---
pt up with assist to bedside commode and inc on the way. new gown, dry flow, socks and skin care done.
[2020-07-30] MEDS: HYDROcodone/acetaminophen 5mg/325mg tablet PO PRN ×3 (03:23→21:55)
--- NOTE | 2020-07-30 03:34 | NUR ---
medicated for pain then assisted up to bedside commode.
--- NOTE | 2020-07-30 04:22 | NUR ---
pt woke up coughing and inc of urine up with assist to bedside commode to void more. urine with strong odor, pt denies pain with urination, and denies spasms.
--- NOTE | 2020-07-30 05:20 | NUR ---
RESTING WITHOUT CHANGES AT THIS TIME.
--- NOTE | 2020-07-30 06:30 | NUR ---
Patient in room [facility]. I have received report from KHAI Weber and had the opportunity to ask questions and assume patient care.
--- NOTE | 2020-07-30 06:32 | NUR ---
Problems reprioritized. Patient report given, questions answered & plan of care reviewed with JOAN RIDLEY. Addendum: 07/30/20 at 0633 by Tia Sanchez RN Amended: Links added.
[2020-07-30 07:00] VITALS: BP 146/77
[2020-07-30] MEDS: K and/or MAG REPLACEMENT MC SCH ×2 (07:04→20:00)
[2020-07-30] MEDS: pantoprazole 40mg Tablet.DR PO SCH (08:33)
[2020-07-30] MEDS: dexamethasone inj 6 MG in normal saline 100ml IV soln 100 ML IV SCH (08:33)
[2020-07-30] MEDS: carvedilol 6.25mg tablet PO SCH ×2 (08:35→21:55)
[2020-07-30] MEDS: losartan 25mg tablet PO SCH (08:35)
[2020-07-30] MEDS: guaiFENesin ER 600mg tablet PO SCH ×2 (08:36→21:55)
[2020-07-30] MEDS: venlafaxine 25mg tablet PO SCH (08:36)
[2020-07-30] MEDS: levoTHYROXINE 25mcg tablet PO SCH (08:36)
[2020-07-30] MEDS: cyclobenzaprine 10mg tablet PO SCH ×3 (08:36→21:55)
[2020-07-30] MEDS: enoxaparin 40mg/0.4ml syringe SUBCUT SCH (08:36)
[2020-07-30 11:00] VITALS: BP 134/63
--- NOTE | 2020-07-30 15:35 | NUR ---
Reassessment: Pt appetite regressing to pureed/thin at this time; noted concerns for aspiration without CIRCUIT DESIGNER BSS this admit. VIGNESH recommended CIRCUIT DESIGNER BSS; notified. Pt PO ~50-75% avg pureed diet w/ mostly 75% recent meeting needs. LBM 07/28. Will continue to monitor for additional protein needs and texture modifications per CIRCUIT DESIGNER recs. Recommendations: 1) Advance diet per [facility] BSS recs to regular 2) yogurt q breakfast, smoothie q lunch, and shake q dinner 3) Routine bowel care 4) Scaled weights per rx Addendum: 07/30/20 at [address] Amended: Links added.
--- NOTE | 2020-07-30 18:15 | NUR ---
Problems reprioritized. Patient report given, questions answered & plan of care reviewed with KHAI Weber.
--- NOTE | 2020-07-30 18:24 | NUR ---
Patient in room [facility]. I have received report from JOAN RIDLEY and had the opportunity to ask questions and assume patient care. Addendum: 07/30/20 at 1825 by Tia Sanchez RN Amended: Links added.
[2020-07-30 20:00] VITALS: BP 144/73
--- NOTE | 2020-07-30 21:00 | NUR ---
IS TEACHING DONE AND DID WELL WITH IT USED UP TO 1000. PT TOLERATED FAIR COUGHING WITH IT.
--- NOTE | 2020-07-30 21:30 | NUR ---
PT MEDICATED FOR PAIN WITH PO NORCO. SKIN CARE DONE AND WICK IN PLACE. PT DOING REALLY WELL WITH THIS. SKIN CLEAN AND DRY WHEN PT COUGHS SHE LEAKS URINE.
--- NOTE | 2020-07-30 22:40 | NUR ---
PT RESTING EYES CLOSED WITHOUT CHANGES.
--- NOTE | 2020-07-31 00:32 | NUR ---
RESTING NO CHANGES.
--- NOTE | 2020-07-31 02:04 | NUR ---
resting no changes.
--- NOTE | 2020-07-31 04:16 | NUR ---
RESTING WITHOUT CHANGES.
--- NOTE | 2020-07-31 05:32 | NUR ---
resting without changes skin care done.
--- NOTE | 2020-07-31 06:30 | NUR ---
Patient in room [facility]. I have received report from KHAI Weber and had the opportunity to ask questions and assume patient care.
--- NOTE | 2020-07-31 06:34 | NUR ---
Problems reprioritized. Patient report given, questions answered & plan of care reviewed with JOAN RIDLEY. Addendum: 07/31/20 at 0635 by Tia Sanchez RN Amended: Links added.
[2020-07-31] MEDS: K and/or MAG REPLACEMENT MC SCH (07:12)
[2020-07-31 08:00] VITALS: BP 156/91
[2020-07-31] MEDS: pantoprazole 40mg Tablet.DR PO SCH (08:09)
[2020-07-31] MEDS: levoTHYROXINE 25mcg tablet PO SCH (08:10)
[2020-07-31] MEDS: dexamethasone inj 6 MG in normal saline 100ml IV soln 100 ML IV SCH (08:10)
[2020-07-31] MEDS: venlafaxine 25mg tablet PO SCH (08:10)
[2020-07-31] MEDS: cyclobenzaprine 10mg tablet PO SCH ×2 (08:10→12:13)
[2020-07-31] MEDS: carvedilol 6.25mg tablet PO SCH (08:10)
[2020-07-31] MEDS: guaiFENesin ER 600mg tablet PO SCH (08:10)
[2020-07-31] MEDS: losartan 25mg tablet PO SCH (08:10)
[2020-07-31] MEDS: enoxaparin 40mg/0.4ml syringe SUBCUT SCH (08:11)
[2020-07-31] MEDS: HYDROcodone/acetaminophen 5mg/325mg tablet PO PRN (08:20)
[2020-07-31 11:00] VITALS: BP 113/64
--- NOTE | 2020-07-31 15:42 | NUR ---
PAGER ID: [phone] MESSAGE: [facility] [phone] Re: Tarah [id number] Patient would like to stay until tomorrow so she can get things arranged at home with family please call
--- NOTE | 2020-07-31 17:55 | NUR ---
Patient discharged home via granddaughter and taken from unit via wheelchair with x1 staff. Patient alert, oriented and in no apparent distress at time of discharge. Patient took all belongings with her including discharge instructions. Patient was encouraged to follow up with PCP in one week, patient agreed. Patient home medication regime was discussed with patient and when to take next dose of medications were written down on the discharge. Patient was given a large print out about COVID-19 and risk factors/when to come back based off of symptoms worsening. Patient stated an understanding of this. Patient granddaughter brought in clothing for patient to go home in and was assisted in getting dressed and ready to go.
== END 2020-07-31 18:02 | disposition home health service (06) | DRG 177 ==
LOC: ER 18:42 → ED HOLD 23:47 → SUR 3N 07-25 07:12
PROVIDERS: ADMIT Internal Medicine; ATTEND Internal Medicine
PROC: B32T1ZZ Computerized Tomography (CT Scan) of Left Pulmonary Artery using Low Osmolar Contrast (ICD-10-PCS; 2020-07-24)
PROC: B3201ZZ Computerized Tomography (CT Scan) of Thoracic Aorta using Low Osmolar Contrast (ICD-10-PCS; 2020-07-24)
PROC: B32S1ZZ Computerized Tomography (CT Scan) of Right Pulmonary Artery using Low Osmolar Contrast (ICD-10-PCS; 2020-07-24)
PROC: 3E0234Z Introduction of Serum, Toxoid and Vaccine into Muscle, Percutaneous Approach (ICD-10-PCS; principal; 2020-07-27)
DX: U07.1 COVID-19 (principal); J12.89 Other viral pneumonia; E03.9 Hypothyroidism, unspecified; F32.9 Major depressive disorder, single episode, unspecified; I11.0 Hypertensive heart disease with heart failure; I50.9 Heart failure, unspecified; R09.02 Hypoxemia; G89.29 Other chronic pain; Z60.2 Problems related to living alone; K21.9 Gastro-esophageal reflux disease without esophagitis; M19.90 Unspecified osteoarthritis, unspecified site; M54.9 Dorsalgia, unspecified; R09.81 Nasal congestion; Z85.3 Personal history of malignant neoplasm of breast; Z87.891 Personal history of nicotine dependence; Z23 Encounter for immunization; Z88.8 Allergy status to other drugs, medicaments and biological substances; Z91.013 Allergy to seafood; Z79.899 Other long term (current) drug therapy; Z79.890 Hormone replacement therapy
CPT/HCPCS: 36415; 71045; 71275; 80053; 82728; 83605; 83615; 83880; 84145; 84443; 85025; 85379; 85384; 86140; 87040; 87081; 90732; 92508; 92616; 93005; 97110; 97116; 97161; 97530; 99285; G0378; J1100; J1650; J7030; J8999; Q9967

== ENCOUNTER 2020-08-06 12:51 | Inpatient (IN) | payer MEDICARE, BC ==
[~2020-08-06] VITALS: Ht 167.6 cm; Wt 59.7 kg
[~2020-08-06 12:51] MED LIST changes: -ANAS1TAB PO; +CIPR500T5 PO; -ENOX40DI11 SQ; +EXEM25TA5 PO; -HYDR-3965 PO; -LEVO50TA67 PO; +LEVO50TA8 PO; +LOSA25TA41 PO; +METH500T6 PO; -MONT10TA26 PO; -NITR100C PO; -OMEP-84 PO; +OMEP40CA13 PO; -ONDA4TAB6 PO; +OXYM30SP26 BOTHNARES; -PANT40SU2 PO; -PHEN-716 PO; -TRAM50TA2 PO; +VENL50TA4 PO; -VENL75TA4 PO; -ZOC40T PO
[2020-08-06] MEDS ORDERED: diphenhydrAMINE 25 MG/10 ML UD oral solution PO ONE (13:25)
[2020-08-06] MEDS ORDERED: mag hydrox/Alum hydrox/simeth 30ml oral suspension PO ONE (13:25)
[2020-08-06] MEDS ORDERED: LIDOcaine Viscous 15ml cup MM ONE (13:25)
[2020-08-06] MEDS ORDERED: normal saline 1000ml 1,000 ML IV ONE (13:25)
[2020-08-06 13:49] LABS: BASOPHILS % (AUTO) 0.1 % (0-1); EOSINOPHILS # (AUTO) 0.1 X10'3 (0-0.9); EOSINOPHILS % (AUTO) 0.9 % (0-6); HEMATOCRIT 35.8 % (35.0-45.0); HEMOGLOBIN 11.6 g/dl (12.0-16.0); LYMPHOCYTES # (AUTO) 0.5 X10'3 (1.1-4.8); LYMPHOCYTES % (AUTO) 4.4 % (21-51); MEAN CORPUSCULAR HEMOGLOBIN 28.3 PG (27.0-31.0); MEAN CORPUSCULAR HGB CONC 32.5 g/dL (33.0-36.5); MEAN CORPUSCULAR VOLUME 86.9 FL (78-98); MEAN PLATELET VOLUME 7.8 FL (7.4-10.4); MONOCYTES # (AUTO) 1.2 X10'3 (0-0.9); NEUTROPHILS # (AUTO) 9.8 X10'3 (1.8-7.7); NEUTROPHILS % (AUTO) 84.6 % (42-75); PLATELET COUNT 202 X10'3 (140-440); RED BLOOD COUNT 4.11 X10'6 (4.20-5.60); RED CELL DISTRIBUTION WIDTH 14.4 % (11.5-14.5); WHITE BLOOD COUNT 11.6 X10'3 (4.5-11.0)
[2020-08-06 14:00] LABS: ALBUMIN 2.2 G/DL (3.4-5.0); ANION GAP 9 (8-16); BLOOD UREA NITROGEN 18 MG/DL (7-18); BUN/CREATININE RATIO 22.5 (6.6-38.0); CALCIUM 8.3 MG/DL (8.5-10.1); CHLORIDE 105 MMOL/L (99-107); GLUCOSE 85 MG/DL (70-104); SODIUM 138 MMOL/L (135-145); TOTAL CARBON DIOXIDE 23.9 MMOL/L (24-32); eGFR 68 ML/MIN
[2020-08-06] MEDS ORDERED: HYDROcodone/acetaminophen 5mg/325mg tablet PO ONE ×2 (14:00→18:25)
[2020-08-06] MEDS ORDERED: iohexol 300mg/ml 100ml inj. ONE (14:09)
[2020-08-06 15:55] LABS: CLARITY,URINE SLIGHTLY CLOUDY (Clear); COLOR,URINE YELLOW (Yellow); GLUCOSE, URINE NEGATIVE (Neg); KETONES,URINE 15 mg/dl (Neg); LEUKOCYTE ESTERASE ,URINE SMALL (Neg); NITRITES, URINE POSITIVE (Neg); OCCULT BLOOD,URINE NEGATIVE (Neg); PROTEIN,URINE TRACE mg/dl (Neg); UROBILINOGEN,URINE 0.2 E.U/dL (0.2-1.0)
[2020-08-06 16:24] LABS: UA COLLECTION TYPE STRAIGHT CATH
[2020-08-06 16:27] LABS: SQUAMOUS EPITHELIAL CELL,UR FEW /LPF (FEW); WBC,URINE TNTC /HPF (0-4)
[2020-08-06 16:28] LABS: TRANSITIONAL EPI CELLS,URINE FEW /HPF
[2020-08-06 16:29] LABS: BACTERIA,URINE 4+ /HPF (Neg)
[2020-08-06] MEDS ORDERED: levoFLOXACIN-Levaquin 250mg/D5 50 ML IV ONE (17:35)
[2020-08-06] MEDS ORDERED: acetaminophen 325mg tablet PO ONE (17:45)
[2020-08-06] MEDS ORDERED: OXYB-58 PO (18:31)
[2020-08-06] MEDS: normal saline 1000ml 1,000 ML IV SCH (20:25)
[2020-08-06] MEDS ORDERED: ondansetron/PF 4mg/2ml inj IV PRN (20:25)
[2020-08-06] MEDS ORDERED: magnesium 4gm in 100ml NS 100 ML IV PRN (20:25)
[2020-08-06] MEDS ORDERED: acetaminophen 325mg tablet PO PRN ×2 (20:25)
[2020-08-06] MEDS ORDERED: potassium Cl 20 mEq SR tablet PO PRN ×2 (20:25)
[2020-08-06] MEDS ORDERED: magnesium 2GM in 50ml NS 50 ML IV PRN (20:25)
[2020-08-06] MEDS ORDERED: potassium CL 10mEq/100ml bag 100 ML IV PRN ×2 (20:25)
[2020-08-06] MEDS ORDERED: mag hydrox/Alum hydrox/simeth 30ml oral suspension PO PRN (20:25)
[2020-08-06] MEDS ORDERED: magnesium hydroxide 30ml (MOM) UD suspension PO PRN (20:25)
--- NOTE | 2020-08-06 21:15 | NUR ---
Patient in room ED 3. I have received report from KHAI Rosa and had the opportunity to ask questions and assume patient care.
[2020-08-06] MEDS: cyclobenzaprine 10mg tablet PO SCH (21:21)
[2020-08-06] MEDS: oxybutynin 5mg tablet PO SCH (21:21)
[2020-08-06] MEDS: enoxaparin 40mg/0.4ml syringe SQ SCH (21:23)
[2020-08-06 22:45] VITALS: BP 126/77
[2020-08-06] MEDS: polyethylene glycol 3350 17gm powd pack PO SCH (23:09)
[2020-08-06] MEDS: HYDROcodone/acetaminophen 10/325mg tab PO PRN (23:09)
[2020-08-07] MEDS: piperacillin/tazo 3.375gm/50ml 50 ML IV SCH ×4 (00:40→23:37)
[2020-08-07] MEDS: HYDROcodone/acetaminophen 10/325mg tab PO PRN ×4 (03:11→21:10)
[2020-08-07 05:48] LABS: ALANINE AMINOTRANSFERASE 104 U/L (12-78); ALBUMIN 1.9 G/DL (3.4-5.0); ALBUMIN/GLOBULIN RATIO 0.5 (1.1-1.5); ALKALINE PHOSPHATASE 262 IU/L (46-116); ANION GAP 6 (8-16); ASPARTATE AMINO TRANSFERASE 198 U/L (10-37); BILIRUBIN,TOTAL 0.9 MG/DL (0.1-1.0); BLOOD UREA NITROGEN 16 MG/DL (7-18); CALCIUM 7.9 MG/DL (8.5-10.1); CHLORIDE 109 MMOL/L (99-107); CREATININE 0.94 MG/DL (0.40-0.90); GLUCOSE 100 MG/DL (70-104); POTASSIUM 3.9 MMOL/L (3.5-5.1); SODIUM 141 MMOL/L (135-145); TOTAL CARBON DIOXIDE 25.8 MMOL/L (24-32); eGFR 56 ML/MIN
[2020-08-07 05:51] LABS: MAGNESIUM 1.9 MG/DL (1.5-2.4)
[2020-08-07 05:53] LABS: BASOPHILS % (AUTO) 0.5 % (0-1); EOSINOPHILS # (AUTO) 0.1 X10'3 (0-0.9); EOSINOPHILS % (AUTO) 0.9 % (0-6); HEMATOCRIT 30.6 % (35.0-45.0); HEMOGLOBIN 10.1 g/dl (12.0-16.0); LYMPHOCYTES # (AUTO) 0.4 X10'3 (1.1-4.8); LYMPHOCYTES % (AUTO) 4.5 % (21-51); MEAN CORPUSCULAR HEMOGLOBIN 28.9 PG (27.0-31.0); MEAN CORPUSCULAR HGB CONC 33.1 g/dL (33.0-36.5); MEAN CORPUSCULAR VOLUME 87.3 FL (78-98); MEAN PLATELET VOLUME 7.8 FL (7.4-10.4); MONOCYTES # (AUTO) 1.3 X10'3 (0-0.9); MONOCYTES % (AUTO) 12.5 % (2-12); NEUTROPHILS # (AUTO) 8.2 X10'3 (1.8-7.7); NEUTROPHILS % (AUTO) 81.6 % (42-75); PLATELET COUNT 169 X10'3 (140-440); RED BLOOD COUNT 3.51 X10'6 (4.20-5.60); RED CELL DISTRIBUTION WIDTH 14.6 % (11.5-14.5)
--- NOTE | 2020-08-07 06:00 | NUR ---
Patient in room [facility]. I have received report from GRACIELA RIDLEY and had the opportunity to ask questions and assume patient care.
--- NOTE | 2020-08-07 06:11 | NUR ---
Problems reprioritized. Patient report given, questions answered & plan of care reviewed with KHAI Faria.
[2020-08-07] MEDS ORDERED: CRANBERRY EXTRACT PO SCH (08:00)
[2020-08-07] MEDS ORDERED: carvedilol 6.25mg tablet PO SCH (08:00)
[2020-08-07] MEDS: K and/or MAG REPLACEMENT MC SCH ×2 (08:00→20:00)
[2020-08-07] MEDS ORDERED: losartan 25mg tablet PO SCH (08:00)
[2020-08-07] MEDS: venlafaxine 25mg tablet PO SCH (08:23)
[2020-08-07] MEDS: pantoprazole 40mg Tablet.DR PO SCH (08:31)
[2020-08-07] MEDS: levoTHYROXINE 25mcg tablet PO SCH (08:31)
[2020-08-07] MEDS: cyclobenzaprine 10mg tablet PO SCH ×3 (08:32→21:01)
[2020-08-07] MEDS: docusate sod 100mg capsule PO SCH ×2 (08:32→21:01)
[2020-08-07] MEDS: oxybutynin 5mg tablet PO SCH ×3 (08:32→21:01)
[2020-08-07 08:39] VITALS: BP 110/69
[2020-08-07] MEDS: normal saline 1000ml 1,000 ML IV SCH ×2 (09:12→17:42)
--- NOTE | 2020-08-07 12:04 | NUR ---
PATIENT B/P 73/41 DR JUAN KOHLER WILL MONITOR
--- NOTE | 2020-08-07 13:11 | NUR ---
PATIENT GIVEN BOLUS B/P 121/37 WILL CONTINUE TO MONITOR
--- NOTE | 2020-08-07 14:54 | NUR ---
Malnutrition consult: Pt reports wt loss with decreased appetite per malnutrition risk screen with RN. Pt with wt hx ranging 59-62 kg since 2017, current documented wt is 56 kg as "emergency weight," recommend to reweigh pt. Had pureed diet last admission, RD placed consult to BSS. Patient had decreased appetite last admission likely r/t admitting dx of COVID, was hospitalized July 25 and discharged on July 31. Pt with no documented significant decrease in muscle strength or edema. Pt appears well developed, well nourished per ED report. Pt currently lacks a minimum of two criteria for malnutrition. Per current H&P note, pt admitted with UTI, sepsis, has h/o CHF and recent covid; has abdominal discomfort r/t large amount of stool in cecum and ascending colon and has daily colace and miralax. 50% PO intake one meal. Recommend: 1. continue heart healthy diet, texture per GAUGE INSPECTOR recs 2. bowel care daily per rx 3. weight per rx Addendum: 08/07/20 at [address] Amended: Links added.
--- NOTE | 2020-08-07 18:33 | NUR ---
Patient in room [facility]. I have received report from KHAI Faria and had the opportunity to ask questions and assume patient care.
--- NOTE | 2020-08-07 18:40 | NUR ---
PATIENT INCONTINENT OF URINE X2. BLAdder scanned [id number] observed. patient up to br voided small amount 537 still post void measurement. dr dahl paged. order given for livingston catheter. report given to marcel cardenas rn
[2020-08-07 18:47] VITALS: BP 99/55
--- NOTE | 2020-08-07 19:49 | NUR ---
Galeano catheter placed per orders.
[2020-08-07] MEDS: polyethylene glycol 3350 17gm powd pack PO SCH (21:01)
[2020-08-07] MEDS: lactobacillus rhamnosus 10,000 MMU CELLS/CAPSULE PO SCH (21:01)
[2020-08-07] MEDS: enoxaparin 40mg/0.4ml syringe SQ SCH (21:02)
[2020-08-07 21:10] VITALS: BP 105/44
[2020-08-07 21:58] VITALS: BP 85/49
[2020-08-07] MEDS: guaiFENesin ER 600mg tablet PO SCH (23:52)
[2020-08-08] VITALS: BP 98/40
[2020-08-08 02:44] VITALS: BP 110/51
[2020-08-08] MEDS: HYDROcodone/acetaminophen 10/325mg tab PO PRN ×4 (02:44→21:00)
[2020-08-08 05:01] LABS: BASOPHILS % (AUTO) 0.4 % (0-1); EOSINOPHILS # (AUTO) 0.1 X10'3 (0-0.9); EOSINOPHILS % (AUTO) 1.7 % (0-6); HEMATOCRIT 28.2 % (35.0-45.0); HEMOGLOBIN 9.4 g/dl (12.0-16.0); LYMPHOCYTES # (AUTO) 0.7 X10'3 (1.1-4.8); LYMPHOCYTES % (AUTO) 10.1 % (21-51); MEAN CORPUSCULAR HEMOGLOBIN 28.8 PG (27.0-31.0); MEAN CORPUSCULAR HGB CONC 33.3 g/dL (33.0-36.5); MEAN CORPUSCULAR VOLUME 86.6 FL (78-98); MEAN PLATELET VOLUME 7.5 FL (7.4-10.4); MONOCYTES # (AUTO) 0.9 X10'3 (0-0.9); MONOCYTES % (AUTO) 12.9 % (2-12); NEUTROPHILS # (AUTO) 5.4 X10'3 (1.8-7.7); NEUTROPHILS % (AUTO) 74.9 % (42-75); PLATELET COUNT 129 X10'3 (140-440); RED BLOOD COUNT 3.25 X10'6 (4.20-5.60); RED CELL DISTRIBUTION WIDTH 14.6 % (11.5-14.5); WHITE BLOOD COUNT 7.2 X10'3 (4.5-11.0)
[2020-08-08 05:26] LABS: ALANINE AMINOTRANSFERASE 128 U/L (12-78); ALBUMIN 1.7 G/DL (3.4-5.0); ALBUMIN/GLOBULIN RATIO 0.4 (1.1-1.5); ALKALINE PHOSPHATASE 250 IU/L (46-116); ANION GAP 7 (8-16); ASPARTATE AMINO TRANSFERASE 128 U/L (10-37); BILIRUBIN,TOTAL 0.6 MG/DL (0.1-1.0); BLOOD UREA NITROGEN 16 MG/DL (7-18); BUN/CREATININE RATIO 16.7 (6.6-38.0); CALCIUM 8.1 MG/DL (8.5-10.1); CHLORIDE 108 MMOL/L (99-107); CREATININE 0.96 MG/DL (0.40-0.90); GLUCOSE 107 MG/DL (70-104); MAGNESIUM 1.8 MG/DL (1.5-2.4); POTASSIUM 3.8 MMOL/L (3.5-5.1); SODIUM 139 MMOL/L (135-145); TOTAL CARBON DIOXIDE 24.5 MMOL/L (24-32); TOTAL PROTEIN 5.7 G/DL (6.4-8.2); eGFR 55 ML/MIN
[2020-08-08 06:00] VITALS: BP 99/43
--- NOTE | 2020-08-08 06:11 | NUR ---
Problems reprioritized. Patient report given, questions answered & plan of care reviewed with KHAI Faria.
--- NOTE | 2020-08-08 06:25 | NUR ---
Patient in room [facility]. I have received report from Lauren Carson RN and had the opportunity to ask questions and assume patient care.
[2020-08-08] MEDS: piperacillin/tazo 3.375gm/50ml 50 ML IV SCH ×2 (07:46→16:00)
[2020-08-08] MEDS: K and/or MAG REPLACEMENT MC SCH ×2 (08:00→20:00)
[2020-08-08] MEDS: docusate sod 100mg capsule PO SCH ×2 (09:23→20:30)
[2020-08-08] MEDS: levoTHYROXINE 25mcg tablet PO SCH (09:23)
[2020-08-08] MEDS: pantoprazole 40mg Tablet.DR PO SCH (09:23)
[2020-08-08] MEDS: venlafaxine 25mg tablet PO SCH (09:24)
[2020-08-08] MEDS: lactobacillus rhamnosus 10,000 MMU CELLS/CAPSULE PO SCH ×2 (09:24→20:30)
[2020-08-08] MEDS: guaiFENesin ER 600mg tablet PO SCH ×2 (09:24→20:30)
[2020-08-08] MEDS: cyclobenzaprine 10mg tablet PO SCH ×3 (09:24→20:30)
[2020-08-08] MEDS: oxybutynin 5mg tablet PO SCH ×3 (09:31→20:30)
[2020-08-08] MEDS: normal saline 1000ml 1,000 ML IV SCH (09:55)
[2020-08-08 11:00] VITALS: BP 104/49
--- NOTE | 2020-08-08 12:06 | NUR ---
F/u for malnutrition consult: Pt s/p BSS with ST recs minced and moist food with thin liquids d/t pt with pain right side of neck/throat with occasional discomfort swallowing solids and with no s/s of aspiration. Pt averaging 75% PO intake meeting estimated nutrient needs for geriatric age. New scaled weight is 57.3 kg. Pt currently lacks a minimum of two criteria for malnutrition. Will continue to follow. Addendum: 08/08/20 at [address] Amended: Links added.
--- NOTE | 2020-08-08 18:09 | NUR ---
patient seen by Dr Talley continue with care. Echo ordered. see report patient ambulated with PT .
--- NOTE | 2020-08-08 18:30 | NUR ---
Patient in room [facility]. I have received report from ELIEZER RIDLEY and had the opportunity to ask questions and assume patient care.
[2020-08-08 20:00] VITALS: BP 101/59
[2020-08-08] MEDS: enoxaparin 40mg/0.4ml syringe SQ SCH (20:30)
[2020-08-08] MEDS: polyethylene glycol 3350 17gm powd pack PO SCH (20:30)
[2020-08-09] VITALS: BP 112/71
[2020-08-09] MEDS: piperacillin/tazo 3.375gm/50ml 50 ML IV SCH (00:45)
[2020-08-09] MEDS: HYDROcodone/acetaminophen 10/325mg tab PO PRN ×3 (01:20→13:26)
[2020-08-09 06:03] LABS: BASOPHILS # (AUTO) 0.1 X10'3 (0-0.2); BASOPHILS % (AUTO) 0.7 % (0-1); EOSINOPHILS # (AUTO) 0.1 X10'3 (0-0.9); EOSINOPHILS % (AUTO) 1.6 % (0-6); HEMATOCRIT 28.7 % (35.0-45.0); HEMOGLOBIN 9.6 g/dl (12.0-16.0); LYMPHOCYTES # (AUTO) 1.1 X10'3 (1.1-4.8); LYMPHOCYTES % (AUTO) 14.7 % (21-51); MEAN CORPUSCULAR HGB CONC 33.4 g/dL (33.0-36.5); MEAN CORPUSCULAR VOLUME 86.9 FL (78-98); MEAN PLATELET VOLUME 7.9 FL (7.4-10.4); MONOCYTES # (AUTO) 0.9 X10'3 (0-0.9); MONOCYTES % (AUTO) 12.3 % (2-12); NEUTROPHILS # (AUTO) 5.4 X10'3 (1.8-7.7); NEUTROPHILS % (AUTO) 70.7 % (42-75); PLATELET COUNT 133 X10'3 (140-440); RED CELL DISTRIBUTION WIDTH 14.3 % (11.5-14.5); WHITE BLOOD COUNT 7.6 X10'3 (4.5-11.0)
[2020-08-09 06:13] LABS: ALANINE AMINOTRANSFERASE 131 U/L (12-78); ALBUMIN 1.6 G/DL (3.4-5.0); ALBUMIN/GLOBULIN RATIO 0.4 (1.1-1.5); ALKALINE PHOSPHATASE 259 IU/L (46-116); ANION GAP 7 (8-16); ASPARTATE AMINO TRANSFERASE 140 U/L (10-37); BILIRUBIN,TOTAL 0.5 MG/DL (0.1-1.0); BLOOD UREA NITROGEN 12 MG/DL (7-18); BUN/CREATININE RATIO 15.6 (6.6-38.0); CALCIUM 8.2 MG/DL (8.5-10.1); CHLORIDE 104 MMOL/L (99-107); CREATININE 0.77 MG/DL (0.40-0.90); GLUCOSE 85 MG/DL (70-104); MAGNESIUM 1.6 MG/DL (1.5-2.4); POTASSIUM 3.6 MMOL/L (3.5-5.1); SODIUM 135 MMOL/L (135-145); TOTAL PROTEIN 5.7 G/DL (6.4-8.2); eGFR 71 ML/MIN
--- NOTE | 2020-08-09 06:30 | NUR ---
Problems reprioritized. Patient report given, questions answered & plan of care reviewed with GEORGE RIDLEY.
--- NOTE | 2020-08-09 06:49 | NUR ---
Patient in room [facility]. I have received report from KHAI Monique and had the opportunity to ask questions and assume patient care.
[2020-08-09 07:00] VITALS: BP 108/58
[2020-08-09] MEDS: K and/or MAG REPLACEMENT MC SCH (08:00)
[2020-08-09] MEDS ORDERED: meropenem inj 1 GM in normal saline 100ml IV soln 100 ML IV SCH (09:10)
[2020-08-09] MEDS: levoTHYROXINE 25mcg tablet PO SCH (09:37)
[2020-08-09] MEDS: lactobacillus rhamnosus 10,000 MMU CELLS/CAPSULE PO SCH (09:38)
[2020-08-09] MEDS: guaiFENesin ER 600mg tablet PO SCH (09:38)
[2020-08-09] MEDS: cyclobenzaprine 10mg tablet PO SCH ×2 (09:38→13:25)
[2020-08-09] MEDS: oxybutynin 5mg tablet PO SCH ×2 (09:39→13:25)
[2020-08-09] MEDS: venlafaxine 25mg tablet PO SCH (09:39)
[2020-08-09] MEDS: pantoprazole 40mg Tablet.DR PO SCH (09:39)
[2020-08-09] MEDS: docusate sod 100mg capsule PO SCH (09:39)
--- NOTE | 2020-08-09 10:00 | NUR ---
SPOKE WITH DR MARTINEZ, PER OK TO PLACE MIDLINE NOT PICC LINE MIDLINE IS SUFFICIENT FOR ABX ORDERED. Domenica NICE PICC RN
[2020-08-09 12:00] VITALS: BP 112/61
--- NOTE | 2020-08-09 12:24 | NUR ---
ULTRASOUND GUIDED 5F DUAL LUMEN MIDLINE PLACED TO LEFT BASILIC VEIN X'S 1 ATTEMPT WITH SUCCESS, TIP ENDS MID-AXILLARY. BOTH LUMENS ASPIRATE BLOOD AND FLUSH WITHOUT DIFFICULTY. Domenica NICE PICC RN
== END 2020-08-09 15:30 | DRG 871 ==
LOC: ER 12:52 → ED HOLD 20:25 → SUR 3N 22:37
PROVIDERS: ADMIT Family Medicine; ATTEND Internal Medicine
DX: A41.51 Sepsis due to Escherichia coli [E. coli] (principal); E43 Unspecified severe protein-calorie malnutrition; I26.09 Other pulmonary embolism with acute cor pulmonale; N39.0 Urinary tract infection, site not specified; I50.9 Heart failure, unspecified; E03.9 Hypothyroidism, unspecified; Z96.651 Presence of right artificial knee joint; R09.02 Hypoxemia; M54.9 Dorsalgia, unspecified; K21.9 Gastro-esophageal reflux disease without esophagitis; M19.90 Unspecified osteoarthritis, unspecified site; G89.29 Other chronic pain; R53.81 Other malaise; R13.10 Dysphagia, unspecified; B96.20 Unspecified Escherichia coli [E. coli] as the cause of diseases classified elsewhere; I27.20 Pulmonary hypertension, unspecified; F32.9 Major depressive disorder, single episode, unspecified; K22.2 Esophageal obstruction; R03.0 Elevated blood-pressure reading, without diagnosis of hypertension; R32 Unspecified urinary incontinence; Z96.643 Presence of artificial hip joint, bilateral; Z88.8 Allergy status to other drugs, medicaments and biological substances; Z91.013 Allergy to seafood; Z90.49 Acquired absence of other specified parts of digestive tract; Z90.710 Acquired absence of both cervix and uterus; Z83.3 Family history of diabetes mellitus; Z80.0 Family history of malignant neoplasm of digestive organs; Z87.891 Personal history of nicotine dependence; Z86.19 Personal history of other infectious and parasitic diseases; Z68.21 Body mass index [BMI] 21.0-21.9, adult
CPT/HCPCS: 36415; 71045; 74177; 76937; 80048; 80053; 81001; 83605; 83735; 83880; 84484; 85025; 87040; 87077; 87081; 87088; 87186; 92508; 92616; 93005; 93306; 96365; 97116; 97161; 97530; 99285; G0378; J1650; J1956; J2185; J2543; J7030; Q0163; Q9967

== ENCOUNTER 2022-01-09 13:02 | Emergency (ER) | payer MEDICARE, BC ==
[~2022-01-09] VITALS: Ht 167.6 cm; Wt 58.9 kg
[~2022-01-09 13:02] MED LIST changes: -CIPR500T5 PO; -CRAN500T2 PO; +CRAN500T3 PO; -EXEM25TA5 PO; +METH-797 PO; -METH500T6 PO; -OMEP40CA13 PO; +OMEP40CA21 PO; +OXYB-58 PO; -OXYM30SP26 BOTHNARES
[2022-01-09 13:14] VITALS: BP 136/88
[2022-01-09 15:20] LABS: CLARITY,URINE CLOUDY (Clear); COLOR,URINE YELLOW (Yellow); GLUCOSE, URINE NEGATIVE (Neg); KETONES,URINE NEGATIVE (Neg); LEUKOCYTE ESTERASE ,URINE TRACE (Neg); NITRITES, URINE POSITIVE (Neg); OCCULT BLOOD,URINE NEGATIVE (Neg); PH,URINE 6.5 (4.8-8.0); PROTEIN,URINE NEGATIVE (Neg); UROBILINOGEN,URINE 0.2 E.U/dL (0.2-1.0)
[2022-01-09 15:22] LABS: UA COLLECTION TYPE CLN CATCH MIDSTREAM
[2022-01-09 15:25] LABS: BACTERIA,URINE 3+ /HPF (Neg); MUCUS STRANDS FEW /LPF (Neg); RBC,URINE 0-2 /HPF (0-2); SQUAMOUS EPITHELIAL CELL,UR MODERATE /LPF (FEW); WBC,URINE 20-30 /HPF (0-4)
[2022-01-09] MEDS ORDERED: SULF1TAB49 PO (16:04)
[2022-01-09] MEDS ORDERED: traMADol 50MG tablet PO ONE (16:20)
[2022-01-09 16:27] LABS: BASOPHILS % (AUTO) 0.2 % (0-1); EOSINOPHILS # (AUTO) 0.2 X10'3 (0-0.9); EOSINOPHILS % (AUTO) 1.8 % (0-6); HEMOGLOBIN 12.2 g/dl (12.0-16.0); LYMPHOCYTES % (AUTO) 8.5 % (21-51); MEAN CORPUSCULAR HEMOGLOBIN 28.8 PG (27.0-31.0); MEAN CORPUSCULAR HGB CONC 32.2 g/dL (33.0-36.5); MEAN CORPUSCULAR VOLUME 89.6 FL (78-98); MEAN PLATELET VOLUME 7.6 FL (7.4-10.4); MONOCYTES # (AUTO) 1.2 X10'3 (0-0.9); MONOCYTES % (AUTO) 10.2 % (2-12); NEUTROPHILS % (AUTO) 79.3 % (42-75); PLATELET COUNT 187 X10'3 (140-440); RED BLOOD COUNT 4.25 X10'6 (4.20-5.60); RED CELL DISTRIBUTION WIDTH 13.5 % (11.5-14.5); WHITE BLOOD COUNT 11.4 X10'3 (4.5-11.0)
[2022-01-09 16:45] LABS: ALANINE AMINOTRANSFERASE 17 U/L (12-78); ALBUMIN 3.4 G/DL (3.4-5.0); ALBUMIN/GLOBULIN RATIO 0.9 (1.1-1.5); ALKALINE PHOSPHATASE 96 IU/L (46-116); ANION GAP 7 (8-16); ASPARTATE AMINO TRANSFERASE 14 U/L (10-37); BILIRUBIN,TOTAL 0.3 MG/DL (0.1-1.0); BLOOD UREA NITROGEN 15 MG/DL (7-18); BUN/CREATININE RATIO 21.7 (6.6-38.0); CALCIUM 8.4 MG/DL (8.5-10.1); CHLORIDE 106 MMOL/L (99-107); CREATININE 0.69 MG/DL (0.40-0.90); GLUCOSE 105 MG/DL (70-104); POTASSIUM 3.6 MMOL/L (3.5-5.1); SODIUM 140 MMOL/L (135-145); TOTAL CARBON DIOXIDE 27.3 MMOL/L (24-32); eGFR 80 ML/MIN
[2022-01-09] MEDS ORDERED: sulfamethoxazole/trimethoprim DS (800/160mg) tablet PO ONE (16:45)
== END 2022-01-09 17:31 | disposition home or self-care (01) ==
LOC: ER 13:03
DX: N30.00 Acute cystitis without hematuria (principal); J02.9 Acute pharyngitis, unspecified; Z20.822 Contact with and (suspected) exposure to COVID-19; R19.7 Diarrhea, unspecified; I11.0 Hypertensive heart disease with heart failure; K21.9 Gastro-esophageal reflux disease without esophagitis; E03.9 Hypothyroidism, unspecified; Z87.448 Personal history of other diseases of urinary system; G89.29 Other chronic pain; M54.9 Dorsalgia, unspecified; Z88.1 Allergy status to other antibiotic agents; Z88.8 Allergy status to other drugs, medicaments and biological substances; Z79.899 Other long term (current) drug therapy
CPT/HCPCS: 36415; 80053; 81001; 85025; 87502; 87503; 87635; 99283; C9803